=== PATIENT | female | born 1970 | race Caucasian/White ===

== ENCOUNTER 2019-01-10 14:56 | Emergency (ER) | payer OTHER ==
[~2019-01-10] VITALS: Ht 157.5 cm; Wt 59.0 kg
[2019-01-10 14:59] VITALS: BP 122/62
== END 2019-01-10 16:00 | disposition home or self-care (01) ==
LOC: ED 14:56
DX: J11.1 Influenza due to unidentified influenza virus with other respiratory manifestations (principal)